=== PATIENT | male | born 1975 | race Caucasian/White ===

== ENCOUNTER 2020-06-24 11:59 | Inpatient (IN) ==
[2020-06-24] MEDS ORDERED: DEXAMETHASONE SOD INJ 10 MG/ML VIAL IV ONE (12:26)
--- NOTE | 2020-06-24 12:31 | Emergency Department Note ---
Impression & Plan Pneumonia due to 2019 novel coronavirus, SOB (shortness of breath), Hypoxia ED Provider Note NAME: SADIA BORGES AGE: 44 SEX: M : 1975 ARRIVES VIA: Walk-In INFORMANT: Patient ED PROVIDER(S): Dani Harding DO CHIEF COMPLAINT: shortness of breath HPI: Patient is a 44-year-old male who presents to the ER for shortness of breath. All his symptoms started last Sunday. He started with a cough, runny nose, shortness of breath. He was tested positive for Covid on Sunday. He was seen and evaluated and sent home. He has become more short of breath. He was using a pulse ox and it was in the mid 80s. He came back in after discussion with our care mangers. He notes he has been still having fevers as well. Myalgias and arthralgias have improved. He denies any belly pain but admits to nausea. No vomiting or diarrhea. Denies any dysuria, urgency or frequency. No other exacerbating or remitting factors. He denies all other medical problems. ROS: See above HPI for pertinent positives & negatives. A total of 10 systems reviewed and were otherwise negative. PAST MEDICAL HISTORY:See Below PAST SURGICAL HISTORY:See Below FAMILY HISTORY:See Below SOCIAL HISTORY:See Below HOME MEDICATIONS:See Below ALLERGIES:See Below VITALS:See Below PHYSICAL EXAMINATION: GENERAL: Sitting up in bed, alert, slightly ill-appearing, disheveled EYE EXAM: normal conjunctiva. PERRL and EOM's grossly intact. OROPHARYNX: normal and mucous membranes are moist NECK: supple, no nuchal rigidity, no adenopathy, non-tender LUNGS: Clear to auscultation. Normal chest wall mechanics HEART: no murmurs, S1 normal and S2 normal ABDOMEN: abdomen soft, non-tender, normo-active bowel sounds, no masses, no rebound or guarding. UPPER EXTREMITIES: upper extremities are grossly normal. LOWER EXTREMITIES: No pitting edema. Calves are equal bilateral NEURO EXAM: Normal sensorium, cranial nerves II-XII grossly intact, normal speech, no gross weakness of arms, no gross weakness of legs. MEDICAL DECISION MAKING: Patient is a 44-year-old male who presents the ER for shortness of breath. He was seen evaluated previously and diagnosed with Covid. IV was established blood work was obtained. Labs showed no significant leukocytosis or anemia. INR was unremarkable. D-dimer was elevated at 620. BMP was fairly unremarkable. Lactic acid was normal. Magnesium slightly elevated. LFTs bilirubin and troponin was negative. Procalcitonin was normal. Based on this I do believe his chest x-ray is consistent with Covid pneumonia. D-dimer was slightly elevated but with the chest x-ray I do believe that this explains the hypoxia. He was placed on high flow nasal cannula. He was updated bedside. He was given Decadron fluids and felt much better. He was admitted to the hospital for hypoxia secondary to Covid pneumonia. Triage Nursing notes reviewed. Limited review of prior medical records performed Vital Signs: reviewed and remarkable for febrile and tachy Differential diagnosis: Differential diagnoses includes but is not limited to pneumonia, bronchitis, COPD/Asthma exacerbation, pneumothorax, pulmonary embolism, congestive heart failure, acute coronary syndrome ER treatment provided: See below Diagnostics interpreted by me: ECG: Sinus tachycardia rate of 100 Normal axis T wave inversion in lead III No PVCs QTC 464 EKG #2 Sinus rhythm rate of 94 Normal axis T wave inversion in lead III Poor baseline QTC 455 Cardiac Monitoring: An order was placed for continuous cardiac monitoring. The monitor shows a rate of 94 with sinus rhythm. Laboratory studies: As stated above and show below. Imaging studies: Portable AP upright 1 view of the chest shows multifocal pneumonia Consultation(s): Discussed with the hospitalist for further evaluation Procedures: none Critical Care: I have personally spent 40 minutes of critical care time in the direct management of this patient. This includes bedside care, interpretation of diagnostic studies, and testing, discussion with consultants, patient, and family members, and other required patient management activities. This 40 minutes is in excess of all separately billable procedures. Past Med/Surg History Medical History (Updated 06/24/20 @ 17:00 by Dani Harding DO) COVID-19 No pertinent past medical history Surgical History (Updated 06/24/20 @ 15:38 by Natalio Friedman) H/O arthroscopic knee surgery left Hx of tonsillectomy Family History (Updated 06/24/20 @ 15:36 by Natalio Friedman) Father Coronary heart disease s/p [place] with stents; he is now age 73 Mother No problems noted. 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 [employer] How many Children do You have: 2 Feels Safe at Home: Yes Allergies Allergies Allergy/AdvReac Type Severity Reaction Status Date / Time No Known Allergies Allergy Unverified 06/22/20 19:19 Home Meds Home Medications Medication Instructions Recorded Confirmed acetaminophen [Tylenol Extra 1,000 mg PO Q6H PRN 06/22/20 06/24/20 Strength] multivitamin 1 tab PO DAILY 06/22/20 06/24/20 Previous Rx's Medication Instructions Recorded doxycycline hyclate 100 mg PO BID 10 Days #18 tab 06/22/20 ondansetron 4 mg PO Q4H PRN #8 tab 06/22/20 Results & Data (ED) Vital Signs Vital Signs - 24 hr 06/24/20 12:02 06/24/20 12:42 06/24/20 12:50 Temperature 38.1 C H Temperature Source Temporal Artery Scan Pulse Rate 103 H Pulse Rate [Finger] 105 H Pulse Rate from SpO2 Sensor Pulse Rhythm Regular Pulse Strength Normal Respiratory Rate 18 36 H Respiratory Effort / Characteristics Non-Labored Spontaneous Spontaneous Respiratory Depth Normal Respiratory Pattern Regular Blood Pressure 117/76 Blood Pressure Mean 89 Blood Pressure Position Sitting Pulse Oximetry 87 L 92 94 Oxygen Delivery Method Room Air Oxymask High Flow Nasal Cannula Oxygen Flow Rate 15 30 Fraction of Inspired Oxygen 70 Sepsis Recent Fever Within 48 Hours Yes Sepsis New/Unexplained Change in Mental Status No Sepsis Action Taken by Nursing No Action Required 06/24/20 13:00 06/24/20 13:20 06/24/20 13:30 Temperature Temperature Source Pulse Rate 94 H 96 H 102 H Pulse Rate [Finger] Pulse Rate from SpO2 Sensor 93 H 96 H 100 H Pulse Rhythm Pulse Strength Respiratory Rate 34 H 31 H 22 Respiratory Effort / Characteristics Respiratory Depth Respiratory Pattern Blood Pressure 110/72 Blood Pressure Mean 84 Blood Pressure Position Pulse Oximetry 92 92 Oxygen Delivery Method High Flow Nasal Cannula High Flow Nasal Cannula Oxygen Flow Rate 30 30 Fraction of Inspired Oxygen Sepsis Recent Fever Within 48 Hours Sepsis New/Unexplained Change in Mental Status Sepsis Action Taken by Nursing 06/24/20 13:31 06/24/20 13:40 06/24/20 13:50 Temperature Temperature Source Pulse Rate 98 H 90 94 H Pulse Rate [Finger] Pulse Rate from SpO2 Sensor 98 H 91 H 94 H Pulse Rhythm Pulse Strength Respiratory Rate 27 H 27 H 23 Respiratory Effort / Characteristics Respiratory Depth Respiratory Pattern Blood Pressure 145/71 H Blood Pressure Mean 95 Blood Pressure Position Pulse Oximetry 91 92 92 Oxygen Delivery Method High Flow Nasal Cannula High Flow Nasal Cannula Oxygen Flow Rate 30 30 Fraction of Inspired Oxygen Sepsis Recent Fever Within 48 Hours Sepsis New/Unexplained Change in Mental Status Sepsis Action Taken by Nursing 06/24/20 14:00 06/24/20 14:01 06/24/20 14:10 Temperature Temperature Source Pulse Rate 91 H 92 H 92 H Pulse Rate [Finger] Pulse Rate from SpO2 Sensor 91 H 93 H 92 H Pulse Rhythm Pulse Strength Respiratory Rate Respiratory Effort / Characteristics Respiratory Depth Respiratory Pattern Blood Pressure 125/99 Blood Pressure Mean 107 Blood Pressure Position Pulse Oximetry 92 92 92 Oxygen Delivery Method Oxygen Flow Rate Fraction of Inspired Oxygen Sepsis Recent Fever Within 48 Hours Sepsis New/Unexplained Change in Mental Status Sepsis Action Taken by Nursing 06/24/20 14:20 06/24/20 14:30 06/24/20 14:31 Temperature Temperature Source Pulse Rate 90 88 86 Pulse Rate [Finger] Pulse Rate from SpO2 Sensor 90 88 86 Pulse Rhythm Pulse Strength Respiratory Rate Respiratory Effort / Characteristics Respiratory Depth Respiratory Pattern Blood Pressure 124/84 Blood Pressure Mean 97 Blood Pressure Position Pulse Oximetry 93 94 94 Oxygen Delivery Method Oxygen Flow Rate Fraction of Inspired Oxygen Sepsis Recent Fever Within 48 Hours Sepsis New/Unexplained Change in Mental Status Sepsis Action Taken by Nursing 06/24/20 14:40 06/24/20 14:50 06/24/20 15:00 Temperature Temperature Source Pulse Rate 93 H 90 90 Pulse Rate [Finger] Pulse Rate from SpO2 Sensor 93 H 90 90 Pulse Rhythm Pulse Strength Respiratory Rate Respiratory Effort / Characteristics Respiratory Depth Respiratory Pattern Blood Pressure 147/90 H Blood Pressure Mean 109 Blood Pressure Position Pulse Oximetry 94 94 94 Oxygen Delivery Method Oxygen Flow Rate Fraction of Inspired Oxygen Sepsis Recent Fever Within 48 Hours Sepsis New/Unexplained Change in Mental Status Sepsis Action Taken by Nursing 06/24/20 15:01 06/24/20 15:10 06/24/20 15:20 Temperature Temperature Source Pulse Rate 91 H 90 89 Pulse Rate [Finger] Pulse Rate from SpO2 Sensor 91 H 91 H 90 Pulse Rhythm Pulse Strength Respiratory Rate 16 Respiratory Effort / Characteristics Respiratory Depth Respiratory Pattern Blood Pressure Blood Pressure Mean Blood Pressure Position Pulse Oximetry 94 93 93 Oxygen Delivery Method Oxygen Flow Rate Fraction of Inspired Oxygen Sepsis Recent Fever Within 48 Hours Sepsis New/Unexplained Change in Mental Status Sepsis Action Taken by Nursing Laboratory Data Result diagrams: 06/24/20 12:43 06/24/20 12:43 Lab Results 06/24/20 06/24/20 06/24/20 Range/Units 12:43 12:43 12:43 WBC 8.33 (4.8-10.8) K/uL RBC 5.14 (4.7-6.1) M/uL Hgb 15.3 (14.0-18.0) g/dL Hct 43.7 (42-52) % MCV 85.0 (80-100) fL MCH 29.8 (25-34) pg MCHC 35.0 (32-36) g/dL RDW Std Deviation 38.3 (36.4-46.3) fL RDW Coeff of Catalino 12.3 (11.5-14.5) % Plt Count 308 (130-400) K/uL MPV 8.9 (7.4-10.4) fL Immature Gran % (Auto) 0.5 % Neut % (Auto) 88.1 % Lymph % (Auto) 6.4 % [place] % (Auto) 4.8 % Eos % (Auto) 0.1 % Baso % (Auto) 0.1 % Neut # (Auto) 7.34 H (1.4-6.5) K/uL Lymph # (Auto) 0.53 L (1.2-3.4) K/uL [place] # (Auto) 0.40 (0.11-0.59) K/uL Eos # (Auto) 0.01 (0-0.5) K/uL Baso # (Auto) 0.01 (0-0.2) K/uL Immature Gran # (Auto) 0.04 H (0.00-0.02) K/uL PT 10.8 (9.0-12.0) Seconds INR 1.0 (0.9-1.1) APTT 30.3 (21.0-31.0) Seconds PTT Ratio 1.1 D-Dimer 620 H* (0-500) ug/L FEU Sodium 136 (136-145) mmol/L Potassium 3.5 (3.5-5.1) mmol/L Chloride 103 (98-107) mmol/L Carbon Dioxide 28 (21-32) mmol/L Anion Gap 5.0 (3-11) BUN 17 (7-18) mg/dl Creatinine 1.18 (0.6-1.4) mg/dl Est Cr Clr Drug Dosing 93.9 ml/min Est GFR ( Amer) 85.3 Est GFR (Non-Af Amer) 73.6 BUN/Creatinine Ratio 14.3 (10-20) Glucose 131 H (70-99) mg/dl Lactate (0.4-2.0) mmol/L Calcium 8.4 L (8.5-10.1) mg/dl Magnesium 2.6 H (1.8-2.4) mg/dl Total Bilirubin 0.6 (0.2-1) mg/dl AST 51 H (15-37) U/L ALT 43 (12-78) U/L Alkaline Phosphatase 83 (45-117) U/L Troponin I < 0.015 (0-0.045) ng/ml Total Protein 7.6 (6.4-8.2) gm/dl Albumin 3.2 L (3.4-5.0) gm/dl Globulin 4.4 H (2.5-4.0) gm/dl Albumin/Globulin Ratio 0.7 L (0.9-2) Procalcitonin (0-0.5) ng/ml 06/24/20 06/24/20 Range/Units 12:43 13:15 WBC (4.8-10.8) K/uL RBC (4.7-6.1) M/uL Hgb (14.0-18.0) g/dL Hct (42-52) % MCV (80-100) fL MCH (25-34) pg MCHC (32-36) g/dL RDW Std Deviation (36.4-46.3) fL RDW Coeff of Catalino (11.5-14.5) % Plt Count (130-400) K/uL MPV (7.4-10.4) fL Immature Gran % (Auto) % Neut % (Auto) % Lymph % (Auto) % [place] % (Auto) % Eos % (Auto) % Baso % (Auto) % Neut # (Auto) (1.4-6.5) K/uL Lymph # (Auto) (1.2-3.4) K/uL [place] # (Auto) (0.11-0.59) K/uL Eos # (Auto) (0-0.5) K/uL Baso # (Auto) (0-0.2) K/uL Immature Gran # (Auto) (0.00-0.02) K/uL PT (9.0-12.0) Seconds INR (0.9-1.1) APTT (21.0-31.0) Seconds PTT Ratio D-Dimer (0-500) ug/L FEU Sodium (136-145) mmol/L Potassium (3.5-5.1) mmol/L Chloride (98-107) mmol/L Carbon Dioxide (21-32) mmol/L Anion Gap (3-11) BUN (7-18) mg/dl Creatinine (0.6-1.4) mg/dl Est Cr Clr Drug Dosing ml/min Est GFR ( Amer) Est GFR (Non-Af Amer) BUN/Creatinine Ratio (10-20) Glucose (70-99) mg/dl Lactate 1.1 (0.4-2.0) mmol/L Calcium (8.5-10.1) mg/dl Magnesium (1.8-2.4) mg/dl Total Bilirubin (0.2-1) mg/dl AST (15-37) U/L ALT (12-78) U/L Alkaline Phosphatase (45-117) U/L Troponin I (0-0.045) ng/ml Total Protein (6.4-8.2) gm/dl Albumin (3.4-5.0) gm/dl Globulin (2.5-4.0) gm/dl Albumin/Globulin Ratio (0.9-2) Procalcitonin 0.06 (0-0.5) ng/ml Administered Medications Discontinued Medications Acetaminophen (Acetaminophen 500 Mg Tab) 1,000 mg PO NOW STA Stop: 06/24/20 13:33 Last Admin: 06/24/20 14:07 Dose: 1,000 mg Documented by: [id number] Dexamethasone (Dexamethasone Sod Inj 10 Mg/Ml Vial) 6 mg IV NOW ONE Stop: 06/24/20 12:27 Last Admin: 06/24/20 12:46 Dose: 6 mg Documented by: [id number] Sodium Chloride (Nss 1000ml) 1,000 mls @ 999 mls/hr IV .Q1H1M ONE Stop: 06/24/20 14:28 Last Infusion: 06/24/20 16:52 Dose: 0 mls/hr Documented by: [id number] Admin: 06/24/20 13:35 Dose: 999 mls/hr Documented by: [id number] Discharge Plan Visit Data Chief Complaint: Shortness of Breath/Dyspnea Stated Complaint: TESTED POSITIVE FOR COVID 06/16 SOB ED Provider: Dani Harding Discharge Problem: Pneumonia due to 2019 novel coronavirus, SOB (shortness of breath), Hypoxia Patient Disposition: Admitted As Inpatient Discharge Instructions Interventions: ED Discharge Assessment Last Done: 06/24/20 15:48
--- NOTE | 2020-06-24 12:54 | XRay Report ---
XR chest 1V portable CLINICAL HISTORY: SEPSIS COMPARISON STUDY: Chest radiograph June 22, 2020. FINDINGS: Lung volumes are mildly diminished. This is unchanged. There is no pneumothorax or pleural effusion. Moderate bilateral airspace opacities have progressed since prior examination. Note is made of moderate cardiomegaly. IMPRESSION: Progression of moderate bilateral airspace opacities consistent with multifocal pneumoni a. Radiographic follow-up to ensure resolution is recommended. ACT 112: Negative or not required by law. Electronically signed by: David Romero M.D. 06/24/2020 12:53 PM
[2020-06-24 13:04] LABS: Hematocrit (blood only) 43.7 % (42-52); Hemoglobin 15.3 g/dL (14.0-18.0); Mean Corpuscular Hemoglobin 29.8 pg (25-34); Mean Platelet Volume 8.9 fL (7.4-10.4); Platelet Count 308 K/uL (130-400); RDW Coefficient of Variation 12.3 % (11.5-14.5); RDW Standard Deviation 38.3 fL (36.4-46.3); Red Blood Count 5.14 M/uL (4.7-6.1); White Blood Count 8.33 K/uL (4.8-10.8)
[2020-06-24 13:15] LABS: Partial Thromboplastin Ratio 1.1; Partial Thromboplastin Time 30.3 Seconds (21.0-31.0); Prothrombin Time 10.8 Seconds (9.0-12.0)
[2020-06-24 13:24] LABS: Alanine Aminotransferase 43 U/L (12-78); Albumin Level 3.2 gm/dl (3.4-5.0); Aspartate Aminotransferase 51 U/L (15-37); BUN Creatinine Ratio 14.3 (10-20); Blood Urea Nitrogen 17 mg/dl (7-18); Calcium 8.4 mg/dl (8.5-10.1); Carbon Dioxide 28 mmol/L (21-32); Chloride 103 mmol/L (98-107); Creatinine Clr Calc Pharmacy 93.9 ml/min; Est GFR (African American) 85.3; Est GFR (Non-African American) 73.6; Glucose 131 mg/dl (70-99); Magnesium 2.6 mg/dl (1.8-2.4); Potassium 3.5 mmol/L (3.5-5.1); Sodium 136 mmol/L (136-145)
[2020-06-24] MEDS ORDERED: SODIUM CHLORIDE 0.9% 1000ML 1,000 ML IV ONE (13:28)
[2020-06-24 13:29] LABS: Albumin Globulin Ratio 0.7 (0.9-2); Alkaline Phosphatase 83 U/L (45-117); Bilirubin,Total 0.6 mg/dl (0.2-1); Globulin 4.4 gm/dl (2.5-4.0); Total Protein 7.6 gm/dl (6.4-8.2); Troponin I < 0.015 ng/ml (0-0.045)
[2020-06-24 13:31] LABS: Basophils # (auto) 0.01 K/uL (0-0.2); Basophils % (auto) 0.1 %; Eosinophils # (auto) 0.01 K/uL (0-0.5); Eosinophils % (auto) 0.1 %; Immature Granulocytes # (auto) 0.04 K/uL (0.00-0.02); Immature Granulocytes % (auto) 0.5 %; Lymphocytes # (auto) 0.53 K/uL (1.2-3.4); Lymphocytes % (auto) 6.4 %; Monocytes % (auto) 4.8 %; Neutrophils # (auto) 7.34 K/uL (1.4-6.5); Neutrophils % (auto) 88.1 %
[2020-06-24] MEDS ORDERED: ACETAMINOPHEN 500 MG TAB PO STA (13:32)
[2020-06-24 14:01] LABS: D Dimer 620 ug/L FEU (0-500)
--- NOTE | 2020-06-24 14:17 | History & Physical Report ---
Date of Service June 24, 2020 Assessment & Plan (1) Acute respiratory failure with hypoxia: Severe. 2nd to COVID-19 pneumonia. High-flow NC has been initiated in the ER. Will continue upon admission. Keep sats >90%. Pulmonary toilet, self-proning, bronchodilators prn, dexamethasone, etc. Nothing on history or by way of labs, etc highly suggestive of VTE. (2) Pneumonia due to 2019 novel coronavirus: Severe. He is about 8 days into his illness. Given the severity of his illness, the rapid worsening, etc will utilize Remdesivir x 5 days along with convalescent plasma. Dexamethasone x 10 days. FDA information sheet on plasma given to patient. Risks/benefits discussed, questions answered, consent obtained. T/S, plasma ordered. HFNC to keep sats >90%. Proning, pulm. toilet, etc. Repeat BMP, dimer, AST, CPK in am. He has taken about 2-3 days of doxycycline prior to admission and thus will finish that course. However, will defer on additional antibiotics given the normal procalcitonin, etc. DVT proph - lovenox 50mg BID. (3) Hyperglycemia: Given his obesity he is at risk of T2DM. Will check HbA1C in the am. Check BSGs. Change diet to DM diet if he is indeed diabetic. (4) Abnormal LFTs: Likely 2nd to COVID-19 infection. Repeat AST in am. Obtain CPK. Trend ast/alt given remdesivir usage. (5) Obesity: BMI 35.5. (6) DVT prophylaxis: Given high risk of VTE in setting of severe COVID illness will utilize lovenox 50mg BID. IV fluids - patient mildly volume depleted on exam - give 2 liters of fluid overnight. History of Present Illness Chief Complaint: worsening shortness of breath, fever, COVID+ Primary Care Provider: NO PCP 44yo male with no significant PMH - recently diagnosed with COVID-19 infection this past Sunday - presents with worsening respiratory symptoms and ongoing fever. 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 On Sunday night, 06/16/20, he developed fatigue and body- aches. By the next day he began with fevers, chills, sweats, sore throat, nasal congestion, and lack of appetite. All symptoms progressed and he ultimately developed loss of taste/smell as well. On 06/18/20, he went and obtained COVID testing which ultimately returned positive. He has continued with all of the above symptoms including a little diarrhea and then the development of cough/shortness of breath on 06/22. On that day he visited our ER at [facility]. He was not hypoxic at that time but cxr did confirm pneumonia. He was prescribed cough meds, albuterol, and doxycycline 100mg BID as his cough was productive. Fevers have been as high as 105 and have persisted since the time of symptom development last Sunday. Since the ER visit on 06/22 his dyspnea has worsened and now he has dyspnea with minimal activity. He was also checking his O2 sats at home and they were in the 80s in room air. Thus, he came back to [facility] ER today. During my admission assessment he was on 70% FiO2 via High-flow NC and was comfortable. At no time has he had chest pain, pleuritic pain or chest tightness. He admits he simply can't take a deep breath. Allergies Allergy/AdvReac Type Severity Reaction Status Date / Time No Known Allergies Allergy Unverified 06/22/20 19:19 Home Medications Medication Instructions Recorded Confirmed Type acetaminophen [Tylenol Extra 1,000 mg PO Q6H PRN 06/22/20 06/24/20 History Strength] doxycycline hyclate 100 mg PO BID 10 Days #18 tab 06/22/20 06/24/20 Rx multivitamin 1 tab PO DAILY 06/22/20 06/24/20 History ondansetron 4 mg PO Q4H PRN #8 tab 06/22/20 06/24/20 Rx Past Med/Surg History Medical History (Updated 06/24/20 @ 21:32 by Natalio Friedman) COVID-19 Surgical History (Updated 06/24/20 @ 15:38 by Natalio Friedman) H/O arthroscopic knee surgery left Hx of tonsillectomy Family History (Updated 06/24/20 @ 15:36 by Natalio Friedman) Father Coronary heart disease s/p [place] with stents; he is now age 73 Mother No problems noted. 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 [employer] How many Children do You have: 2 Feels Safe at Home: Yes Assistive Devices: Oxygen - Continuous Review of Systems Constitutional: + fever, + chills, + body aches, + fatigue, + malaise, + weakness and + anorexia Eyes: no worsening vision Ear, Nose, Mouth, Throat: + nasal congestion and + sore throat +loss of taste and smell Respiratory: + cough, + dyspnea, + dyspnea on exertion and + sputum production Cardiovascular: no chest pain and no edema Gastrointestinal: + nausea, + vomiting (dry heaves) and + diarrhea/loose stools (a little); no abdominal pain Genitourinary: no dysuria Musculoskeletal: + body aches; no joint pain Integumentary: no rash Neurologic: + tingling (body-wide a few days ago; lasted 20 min then resolved) and + dizziness Psychiatric: no depression Endocrine: denies diabetes Hematologic / Lymphatic: no easy bleeding Physical Exam Constitutional: well developed, well nourished, + ill appearing and + obese; no acute distress and no altered mental status Eyes: + anicteric sclerae and PERRL ENMT: Mouth: + dry oral mucous membranes Neck: trachea midline, no thyromegaly Respiratory: no respiratory distress Auscultation: + diminished lung sounds (bases), + crackles (bases) and + wheezes (scant, end-exp) Cardiovascular: Rate/Rhythm: regular rate and regular rhythm Heart Sounds: normal S1 and normal S2; no murmur Vessels: posterior tibial pulses present and dorsalis pedis pulses present; no JVD Extremities: no edema Gastrointestinal (Abdomen): normal bowel sounds, soft, nontender, no hepatosplenomegaly Musculoskeletal: no cyanosis or clubbing, extremities motor strength 5/5 Skin: no rashes, warm and dry Neurologic: moves all extremities; no focal motor deficits Psychiatric: A+Ox3, euthymic affect Lymphatic: no cervical lymphadenopathy Results & Data Results & Data ([facility]) Vital Signs (Past 12 Hours) Vital Signs Temp Pulse Pulse Resp BP Pulse Ox 06/24/20 13:50 94 H 23 92 06/24/20 13:40 90 27 H 92 06/24/20 13:31 98 H 27 H 145/71 H 91 06/24/20 13:30 102 H 22 06/24/20 13:20 96 H 31 H 92 06/24/20 13:00 94 H 34 H 110/72 92 06/24/20 12:50 105 H 36 H 94 06/24/20 12:42 92 06/24/20 12:02 38.1 C H 103 H 18 117/76 87 L Laboratory Results Laboratory Results - last 24 hr 06/24/20 06/24/20 06/24/20 12:43 12:43 12:43 WBC 8.33 RBC 5.14 Hgb 15.3 Hct 43.7 MCV 85.0 MCH 29.8 MCHC 35.0 RDW Std Deviation 38.3 RDW Coeff of Catalino 12.3 Plt Count 308 MPV 8.9 Immature Gran % (Auto) 0.5 Neut % (Auto) 88.1 Lymph % (Auto) 6.4 [place] % (Auto) 4.8 Eos % (Auto) 0.1 Baso % (Auto) 0.1 Neut # (Auto) 7.34 H Lymph # (Auto) 0.53 L [place] # (Auto) 0.40 Eos # (Auto) 0.01 Baso # (Auto) 0.01 Immature Gran # (Auto) 0.04 H PT 10.8 INR 1.0 APTT 30.3 PTT Ratio 1.1 D-Dimer 620 H* Sodium 136 Potassium 3.5 Chloride 103 Carbon Dioxide 28 Anion Gap 5.0 BUN 17 Creatinine 1.18 Est Cr Clr Drug Dosing 93.9 Est GFR ( Amer) 85.3 Est GFR (Non-Af Amer) 73.6 BUN/Creatinine Ratio 14.3 Glucose 131 H Lactate Calcium 8.4 L Magnesium 2.6 H Total Bilirubin 0.6 AST 51 H ALT 43 Alkaline Phosphatase 83 Troponin I < 0.015 Total Protein 7.6 Albumin 3.2 L Globulin 4.4 H Albumin/Globulin Ratio 0.7 L Procalcitonin 06/24/20 06/24/20 12:43 13:15 WBC RBC Hgb Hct MCV MCH MCHC RDW Std Deviation RDW Coeff of Catalino Plt Count MPV Immature Gran % (Auto) Neut % (Auto) Lymph % (Auto) [place] % (Auto) Eos % (Auto) Baso % (Auto) Neut # (Auto) Lymph # (Auto) [place] # (Auto) Eos # (Auto) Baso # (Auto) Immature Gran # (Auto) PT INR APTT PTT Ratio D-Dimer Sodium Potassium Chloride Carbon Dioxide Anion Gap BUN Creatinine Est Cr Clr Drug Dosing Est GFR ( Amer) Est GFR (Non-Af Amer) BUN/Creatinine Ratio Glucose Lactate 1.1 Calcium Magnesium Total Bilirubin AST ALT Alkaline Phosphatase Troponin I Total Protein Albumin Globulin Albumin/Globulin Ratio Procalcitonin 0.06 Diagnostic Findings cxr: IMPRESSION: Progression of moderate bilateral airspace opacities consistent with multifocal pneumonia. Radiographic follow-up to ensure resolution is recommended. EKG - my reading - sinus tach, RSR' pattern c/w IRBBB, large R wave lead 1 suggestive of LVH; NS ST changes III Code Status & VTE Plan Code Status full code VTE Prophylaxis Plan VTE Prophylaxis will be ordered: Yes PG Care Time/CCT Total # of Minutes Spent Total Time Spent with Patient: Total time spent is greater than 50% in coordination of care (as documented) at patient's floor/unit and/or counseling patient: Coding Level of Care Code 91720 Initial Inpt Care Lvl 3 Diagnoses Acute respiratory failure with hypoxia J96.01 Pneumonia due to 2019 novel coronavirus U07.1; J12.82 Hyperglycemia R73.9 Abnormal LFTs R94.5 Obesity E66.9 Body mass index: BMI 35.0-35.9 DVT prophylaxis Z29.9 (1) Obesity Body mass index: BMI 35.0-35.9
[2020-06-24] MEDS ORDERED: REMDESIVIR 200 MG in SODIUM CHLORIDE 0.9% 210 ML IV STA (15:27)
[2020-06-24] MEDS ORDERED: ACETAMINOPHEN 500 MG TAB PO ONE (16:41)
[2020-06-24] MEDS ORDERED: BENZONATATE 100 MG CAPSULE PO PRN (16:41)
[2020-06-24] MEDS ORDERED: ONDANSETRON INJ 2 MG/ML 2 ML VIAL IV PRN (16:41)
[2020-06-24] MEDS ORDERED: ENOXAPARIN 0.5 MG/KG SQ SCH (16:41)
[2020-06-24] MEDS ORDERED: ACETAMINOPHEN 500 MG TAB PO PRN (16:45)
--- NOTE | 2020-06-24 16:57 | Electrocardiogram Report ---
Test Reason : Blood Pressure : / mmHG Vent. Rate : 094 BPM Atrial Rate : 094 BPM P-R Int : 118 ms QRS Dur : 092 ms QT Int : 364 ms P-R-T Axes : 044 025 014 degrees QTc Int : 455 ms Normal sinus rhythm Normal ECG When compared with ECG of 22-JUN-2020 18:23, No significant change was found Confirmed by Yousif Friend ([id number]) on 06/24/2020 4:57:18 PM Referred By: REFERRED SELF Confirmed By:Mark Friend
--- NOTE | 2020-06-24 16:58 | Electrocardiogram Report ---
Test Reason : Blood Pressure : / mmHG Vent. Rate : 100 BPM Atrial Rate : 100 BPM P-R Int : 128 ms QRS Dur : 088 ms QT Int : 360 ms P-R-T Axes : 056 018 011 degrees QTc Int : 464 ms Normal sinus rhythm Normal ECG When compared with ECG of 24-JUN-2020 12:23, (unconfirmed) No significant change was found Confirmed by Yousif Friend ([id number]) on 06/24/2020 4:57:59 PM Referred By: REFERRED SELF Confirmed By:Mark Friend
[2020-06-24] MEDS: ENOXAPARIN INJ 60 MG/0.6 ML SYR SQ SCH (17:33)
[2020-06-24] MEDS: NSS + 20MEQ KCL 20 MEQ/1,000 ML BAG IV SCH (19:39)
[2020-06-24] MEDS: SODIUM CHLORIDE 0.9% 10ML FLUSH IV SCH (19:40)
[2020-06-24] MEDS: guaiFENesin 600 MG TABCR PO SCH (21:55)
[2020-06-24] MEDS: FAMOTIDINE 20 MG TAB PO SCH (21:55)
[2020-06-24] MEDS: DOXYCYCLINE HYCLATE 100 MG CAP PO SCH (21:55)
[2020-06-25] MEDS: NSS + 20MEQ KCL 20 MEQ/1,000 ML BAG IV SCH (06:08)
[2020-06-25] MEDS: ENOXAPARIN INJ 60 MG/0.6 ML SYR SQ SCH ×2 (06:09→17:12)
[2020-06-25 06:41] LABS: Estimated Average Glucose 117 mg/dl; Hemoglobin A1C 5.7 % (4.5-5.6)
[2020-06-25 07:23] LABS: BUN Creatinine Ratio 19.1 (10-20); Calcium 8.4 mg/dl (8.5-10.1); Creatinine Clr Calc Pharmacy 126.1 ml/min; Est GFR (African American) 118.8; Est GFR (Non-African American) 102.5; Potassium 4.2 mmol/L (3.5-5.1)
[2020-06-25 08:05] LABS: D Dimer 360 ug/L FEU (0-500)
[2020-06-25] MEDS: DOXYCYCLINE HYCLATE 100 MG CAP PO SCH ×2 (09:02→21:11)
[2020-06-25] MEDS: guaiFENesin 600 MG TABCR PO SCH ×2 (09:02→21:11)
[2020-06-25] MEDS: MULTIVITAMIN TAB PO SCH (09:02)
[2020-06-25] MEDS: dexAMETHasone 6 MG in SYRINGE 0 ML IV SCH (09:02)
[2020-06-25] MEDS: FAMOTIDINE 20 MG TAB PO SCH ×2 (09:02→21:11)
[2020-06-25] MEDS: REMDESIVIR 100 MG in SODIUM CHLORIDE 0.9% 230 ML IV SCH (11:18)
[2020-06-25] MEDS: SODIUM CHLORIDE 0.9% 10ML FLUSH IV SCH (12:20)
--- NOTE | 2020-06-25 16:30 | Hospitalist Progress Note ---
Date of Service June 25, 2020 Assessment & Plan (1) Acute respiratory failure with hypoxia: Severe. 2nd to COVID-19 pneumonia. Patient has progressed to Vapotherm 30 L 60% continues with some hypoxic events Pulmonary toilet, self-proning, bronchodilators prn, dexamethasone, this severe in plasma (2) Pneumonia due to 2019 novel coronavirus: Severe. On presentation he was about about 8 days into his illness. Earling is starting date to be somewhere around 06/16/2020 Given the severity of his illness, the rapid worsening, Dexamethasone, Remdesivir x 5 days along with convalescent plasma. He has taken about 2-3 days of doxycycline prior to admission and thus will finish that course. DVT proph - lovenox 50mg BID. ( 0.5 mg/kg q 12) (3) Hyperglycemia: Given his obesity he is at risk of T2DM. HbA1C 5.7 (4) Abnormal LFTs: Likely 2nd to COVID-19 infection. (5) Obesity: BMI 35.5. (6) DVT prophylaxis: Given high risk of VTE in setting of severe COVID illness will utilize lovenox 50mg BID. Admission and Anticipated Discharge Date Admission Date: June 24, 2020 Subjective Patient is in mild to moderate respiratory distress requiring high flow therapy still with significant hypoxia at times initially resistant to prone but now understanding with proning means we will continue to try to prone, will continue steroids, remdesivir, to try to diurese and provide supportive care for this patient Review of Systems Review of Systems: moderate distress and fatigue no headache, blurry or double vision no speech or swallowing issues no chest pain, pressure or palpitations Shortness of breath worse with exertion nonproductive coughing no abdominal pain, nausea or vomiting, diarrhea or constipation no dysuria, hematuria or frequency no focal joint pain or swelling no back pain, CVA tenderness or radicular pain no bruising, bleeding or rashes no focal signs of weakness or numbness or altered sensation no complaints of anxiety or depression.. Physical Exam Physical Exam: The patient appeared well nourished and normally developed. Vital signs as documented. Head exam is normocephalic atraumatic no scleral icterus Neck is without JVD, thyromegaly, or carotid bruits. Lungs are coarse rales bilaterally with poor air movement throughout no wheezes Cardiac exam, Rhythm is regular.. No murmurs, rubs or gallops. Abdominal exam reveals normal bowel sounds, soft non tender, no masses Extremities are nonedematous and both pedal pulses are present Neurologic exam is alert and oriented, no focal loss of strength or sensation Skin is without bruises or rashes Psychologically is without concerns for anxiety or depression. Results & Data Results & Data ([facility]) Vital Signs (Past 12 Hours) Vital Signs Temp Pulse Pulse Resp BP Pulse Ox 06/25/20 15:14 98.2 F 74 19 135/73 81 L 06/25/20 14:59 74 06/25/20 14:30 79 24 93 06/25/20 11:15 82 24 92 06/25/20 10:55 98.1 F 78 24 111/66 90 06/25/20 08:06 78 20 90 06/25/20 08:00 83 06/25/20 07:44 98.1 F 78 18 126/73 93 06/25/20 04:37 98.1 F 72 18 117/77 94 PG Care Time/CCT Total # of Minutes Spent Total Time Spent with Patient: Total time spent is greater than 50% in coordination of care (as documented) at patient's floor/unit and/or counseling patient: Coding Level of Care Code 73857 Subseq Hosp Care Lvl 3 Diagnoses Acute respiratory failure with hypoxia J96.01 Pneumonia due to 2019 novel coronavirus U07.1; J12.82 Hyperglycemia R73.9 Abnormal LFTs R94.5 Obesity E66.9 Body mass index: BMI 35.0-35.9 DVT prophylaxis Z29.9 (1) Obesity Body mass index: BMI 35.0-35.9
[2020-06-25] MEDS ORDERED: FUROSEMIDE 40 MG/4 ML VIAL IV STA (16:32)
[2020-06-25] MEDS ORDERED: FUROSEMIDE 20 MG in SYRINGE 0 ML IV ONE (16:45)
[2020-06-26] MEDS: ENOXAPARIN INJ 60 MG/0.6 ML SYR SQ SCH ×2 (06:30→17:20)
[2020-06-26 06:59] LABS: Alanine Aminotransferase 35 U/L (12-78); Aspartate Aminotransferase 28 U/L (15-37)
[2020-06-26] MEDS: FAMOTIDINE 20 MG TAB PO SCH ×2 (07:51→20:11)
[2020-06-26] MEDS: MULTIVITAMIN TAB PO SCH (07:51)
[2020-06-26] MEDS: guaiFENesin 600 MG TABCR PO SCH ×2 (07:51→20:11)
[2020-06-26] MEDS: DOXYCYCLINE HYCLATE 100 MG CAP PO SCH ×2 (07:51→20:11)
[2020-06-26] MEDS: dexAMETHasone 6 MG in SYRINGE 0 ML IV SCH (07:52)
[2020-06-26] MEDS: REMDESIVIR 100 MG in SODIUM CHLORIDE 0.9% 230 ML IV SCH (13:00)
[2020-06-26] MEDS: SODIUM CHLORIDE 0.9% 10ML FLUSH IV SCH (13:01)
--- NOTE | 2020-06-26 14:30 | Hospitalist Progress Note ---
Date of Service June 26, 2020 Assessment & Plan (1) Acute respiratory failure with hypoxia: Severe. 2nd to COVID-19 pneumonia. Patient continues with Vapotherm 30 L 60% continues with some hypoxic events Pulmonary toilet, self-proning, bronchodilators prn, dexamethasone, this severe in plasma (2) Pneumonia due to 2019 novel coronavirus: Severe. On presentation he was about about 8 days into his illness. Earling is starting date to be somewhere around 06/16/2020 Given the severity of his illness, the rapid worsening, Dexamethasone, Remdesivir x 5 days along with convalescent plasma. He has taken about 2-3 days of doxycycline prior to admission and thus will finish that course. DVT proph - lovenox 50mg BID. ( 0.5 mg/kg q 12) (3) Hyperglycemia: Given his obesity he is at risk of T2DM. HbA1C 5.7 (4) Abnormal LFTs: Likely 2nd to COVID-19 infection. (5) Obesity: BMI 35.5. (6) DVT prophylaxis: Given high risk of VTE in setting of severe COVID illness will utilize lovenox 50mg BID. Admission and Anticipated Discharge Date Admission Date: June 24, 2020 Subjective Patient continues with mild to moderate respiratory distress still requiring high flow therapy still with significant hypoxia at times proning where able continue steroids, remdesivir, to try to diurese and provide supportive care for this patient Review of Systems Review of Systems: moderate distress and fatigue no headache, blurry or double vision no speech or swallowing issues no chest pain, pressure or palpitations Shortness of breath worse with exertion nonproductive coughing no abdominal pain, nausea or vomiting, diarrhea or constipation no dysuria, hematuria or frequency no focal joint pain or swelling no back pain, CVA tenderness or radicular pain no bruising, bleeding or rashes no focal signs of weakness or numbness or altered sensation no complaints of anxiety or depression.. Ear, Nose, Mouth, Throat: Gastrointestinal: + diarrhea/loose stools (a little) Endocrine: Physical Exam Physical Exam: The patient appeared well nourished and normally developed. Vital signs as documented. Head exam is normocephalic atraumatic no scleral icterus Neck is without JVD, thyromegaly, or carotid bruits. Lungs continue with coarse rales bilaterally with poor air movement throughout no wheezes Cardiac exam, Rhythm is regular.. No murmurs, rubs or gallops. Abdominal exam reveals normal bowel sounds, soft non tender, no masses Extremities are nonedematous and both pedal pulses are present Neurologic exam is alert and oriented, no focal loss of strength or sensation Skin is without bruises or rashes Psychologically is without concerns for anxiety or depression. Results & Data Results & Data ([facility]) Vital Signs (Past 12 Hours) Vital Signs Temp Pulse Pulse Resp BP Pulse Ox 06/26/20 12:19 98.1 F 69 19 109/65 96 06/26/20 11:28 77 18 91 06/26/20 09:00 57 L 06/26/20 08:11 62 18 91 06/26/20 08:05 97.5 F L 64 19 115/71 94 06/26/20 03:22 97.5 F L 62 18 125/75 96 06/26/20 03:03 60 22 98 PG Care Time/CCT Total # of Minutes Spent Total Time Spent with Patient: Total time spent is greater than 50% in coordi nation of care (as documented) at patient's floor/unit and/or counseling patient: Coding Level of Care Code 91401 Subseq Hosp Care Lvl 2 Diagnoses Acute respiratory failure with hypoxia J96.01 Pneumonia due to 2019 novel coronavirus U07.1; J12.82 Hyperglycemia R73.9 Abnormal LFTs R94.5 Obesity E66.9 Body mass index: BMI 35.0-35.9 DVT prophylaxis Z29.9 (1) Obesity Body mass index: BMI 35.0-35.9
[2020-06-27] MEDS: ENOXAPARIN INJ 60 MG/0.6 ML SYR SQ SCH ×2 (06:38→17:03)
[2020-06-27 07:26] LABS: Alanine Aminotransferase 43 U/L (12-78); Aspartate Aminotransferase 34 U/L (15-37)
[2020-06-27] MEDS: MULTIVITAMIN TAB PO SCH (07:52)
[2020-06-27] MEDS: DOXYCYCLINE HYCLATE 100 MG CAP PO SCH ×2 (07:52→19:49)
[2020-06-27] MEDS: guaiFENesin 600 MG TABCR PO SCH ×2 (07:53→19:49)
[2020-06-27] MEDS: dexAMETHasone 6 MG in SYRINGE 0 ML IV SCH (07:53)
[2020-06-27] MEDS: FAMOTIDINE 20 MG TAB PO SCH ×2 (07:53→19:49)
[2020-06-27] MEDS: REMDESIVIR 100 MG in SODIUM CHLORIDE 0.9% 230 ML IV SCH (11:18)
[2020-06-27] MEDS: SODIUM CHLORIDE 0.9% 10ML FLUSH IV SCH (12:27)
--- NOTE | 2020-06-27 15:25 | Hospitalist Progress Note ---
Date of Service June 27, 2020 Assessment & Plan (1) Acute respiratory failure with hypoxia: Severe. 2nd to COVID-19 pneumonia. Patient transitioned off the Vapotherm to 8 L humidified high flow from the wall unit Pulmonary toilet, self-proning, bronchodilators prn, dexamethasone, this severe in plasma (2) Pneumonia due to 2019 novel coronavirus: Severe. On presentation he was about about 8 days into his illness. Ear[place] is starting date to be somewhere around 06/16/2020 Given the severity of his illness, the rapid worsening, Dexamethasone, Remdesivir x 5 days along with convalescent plasma. He has taken about 2-3 days of doxycycline prior to admission and thus will finish that course. DVT proph - lovenox 50mg BID. ( 0.5 mg/kg q 12) (3) Hyperglycemia: Given his obesity he is at risk of T2DM. HbA1C 5.7 glucose checks not reveal any glucose intolerance they were subsequently discontinued (4) Abnormal LFTs: Likely 2nd to COVID-19 infection. (5) Obesity: BMI 35.5. (6) DVT prophylaxis: Given high risk of VTE in setting of severe COVID illness will utilize lovenox 50mg BID. Admission and Anticipated Discharge Date Admission Date: June 24, 2020 Subjective Patient is some improvement with reduction of oxygen requirements from Vapotherm to 8 L high flow from the wall unit. He is continue to be comfortable but is dyspneic with exertion and has subjective complaints of feeling like he cannot take a full deep breath, continue steroids, remdesivir, supportive care Review of Systems Review of Systems: moderate distress and fatigue no headache, blurry or double vision no speech or swallowing issues no chest pain, pressure or palpitations Shortness of breath continues to be worse with exertion continues with nonproductive coughing no abdominal pain, nausea or vomiting, diarrhea or constipation no dysuria, hematuria or frequency no focal joint pain or swelling no back pain, CVA tenderness or radicular pain no bruising, bleeding or rashes no focal signs of weakness or numbness or altered sensation no complaints of anxiety or depression.. Physical Exam Physical Exam: The patient appeared well nourished and normally developed. Only in distress when he exerts himself Vital signs as documented. Head exam is normocephalic atraumatic no scleral icterus Neck is without JVD, thyromegaly, or carotid bruits. Lungs continue with coarse rales bilaterally right side greater than left side with poor air movement throughout Cardiac exam, Rhythm is regular.. No murmurs, rubs or gallops. Abdominal exam reveals normal bowel sounds, soft non tender, no masses Extremities are nonedematous and both pedal pulses are present Neurologic exam is alert and oriented, no focal loss of strength or sensation Skin is without bruises or rashes Psychologically is without concerns for anxiety or depression. Results & Data Results & Data ([facility]) Vital Signs (Past 12 Hours) Vital Signs Temp Pulse Pulse Resp BP Pulse Ox 06/27/20 12:03 65 18 95 06/27/20 11:20 98.1 F 72 19 116/70 91 06/27/20 11:10 73 18 93 06/27/20 08:34 74 06/27/20 07:30 98.2 F 67 20 128/76 93 06/27/20 07:24 67 18 93 06/27/20 07:14 66 06/27/20 03:35 98.1 F 60 18 121/76 96 PG Care Time/CCT Total # of Minutes Spent Total Time Spent with Patient: Total time spent is greater than 50% in coordination of care (as documented) at patient's floor/unit and/or counseling patient: Coding Level of Care Code 62573 Subseq Hosp Care Lvl 3 Diagnoses Acute respiratory failure with hypoxia J96.01 Pneumonia due to 2019 novel coronavirus U07.1; J12.82 Hyperglycemia R73.9 Abnormal LFTs R94.5 Obesity E66.9 Body mass index: BMI 35.0-35.9 DVT prophylaxis Z29.9 (1) Obesity Body mass index: BMI 35.0-35.9
[2020-06-28] MEDS: ENOXAPARIN INJ 60 MG/0.6 ML SYR SQ SCH ×2 (05:52→18:29)
[2020-06-28 06:47] LABS: Alanine Aminotransferase 140 U/L (12-78); Aspartate Aminotransferase 76 U/L (15-37)
[2020-06-28] MEDS: MULTIVITAMIN TAB PO SCH (08:49)
[2020-06-28] MEDS: dexAMETHasone 6 MG in SYRINGE 0 ML IV SCH (08:49)
[2020-06-28] MEDS: guaiFENesin 600 MG TABCR PO SCH ×2 (08:49→20:46)
[2020-06-28] MEDS: FAMOTIDINE 20 MG TAB PO SCH ×2 (08:49→20:46)
[2020-06-28] MEDS: DOXYCYCLINE HYCLATE 100 MG CAP PO SCH ×2 (08:50→20:46)
--- NOTE | 2020-06-28 10:25 | Hospitalist Progress Note ---
Date of Service June 28, 2020 Assessment & Plan (1) Acute respiratory failure with hypoxia: Severe. 2nd to COVID-19 pneumonia. Patient transitioned off the Vapotherm two days ago stable on 5L this morning, 94%, no distress at all hopeful to be down to room air in next 48 hours and discharge to home Pulmonary toilet, self-proning, bronchodilators prn, dexamethasone, this severe in plasma (2) Pneumonia due to 2019 novel coronavirus: Severe. On presentation he was about about 8 days into his illness. starting date was around 06/16/2020 Given the severity of his illness, the rapid worsening, Dexamethasone, Remdesivir x 5 days along with convalescent plasma. He has taken about 2-3 days of doxycycline prior to admission and thus will finish that course. DVT proph - lovenox 50mg BID. ( 0.5 mg/kg q 12) much improved, down to 5L today, eating well, no fever, likely through the worst of his illness plan for discharge in 2-3 days if he can be titrated down to room air (3) Hyperglycemia: Given his obesity he is at risk of T2DM. HbA1C 5.7 glucose checks not reveal any glucose intolerance they were subsequently discontinued (4) Abnormal LFTs: Likely 2nd to COVID-19 infection AST and ALT trending down (5) Obesity: BMI 35.5. (6) DVT prophylaxis: Given high risk of VTE in setting of severe COVID illness will utilize lovenox 50mg BID. Admission and Anticipated Discharge Date Admission Date: June 24, 2020 Subjective patient feeling a lot better, down to 6L, I dropped him to 5L and he remained 94% no respiratory distress, minimal cough, using his incentive spirometer and flutter valve a lot says he can breathe much deeper than a few days ago eating okay, forcing himself to eat more no chest pain, no fever/chills, no fatigue, no nausea/vomiting, no diarrhea Review of Systems Review of Systems: All systems reviewed & are unremarkable except as noted in Subjective Physical Exam Constitutional: WD/WN, vitals as above Neck: trachea midline, no thyromegaly Respiratory: normal respiratory effort, lungs clear to auscultation Cardiovascular: RRR, no murmur, no edema Gastrointestinal (Abdomen): normal bowel sounds, soft, nontender, no hepatosplenomegaly Musculoskeletal: no cyanosis or clubbing, extremities motor strength 5/5 Skin: no rashes, warm and dry Neurologic: patellar DTR's 2+ bilat, sensation intact and PERRL, EOMI, accommodation nl, no face palsy, no dysarthria Psychiatric: A+Ox3, euthymic affect Lymphatic: no cervical or axillary lymphadenopathy Results & Data Results & Data ([facility]) Vital Signs (Past 12 Hours) Vital Signs Temp Pulse Resp BP Pulse Ox 06/28/20 07:46 36.7 C 65 18 107/74 95 06/28/20 03:55 36.9 C 63 19 116/73 96 06/27/20 23:11 37.1 C 70 20 116/69 96 Laboratory Results Laboratory Results - last 24 hr 06/28/20 05:48 AST 76 H ALT 140 H Medications Administered Current Inpatient Medications Acetaminophen (Acetaminophen 500 Mg Tab) 500 mg PO Q6H PRN PRN Reason: Fever Or Pain Stop: 07/24/20 16:44 Benzonatate (Benzonatate 100 Mg Capsule) 100 mg PO Q8H PRN PRN Reason: Cough Stop: 07/24/20 16:40 Doxycycline Hyclate (Doxycycline Hyclate 100 Mg Cap) 100 mg PO BID [facility] Stop: 06/29/20 09:01 Last Admin: 06/28/20 08:50 Dose: 100 mg Documented by: Enoxaparin Sodium (Enoxaparin Inj 60 Mg/0.6 Ml Syr) 50 mg SQ Q12H JOSE Stop: 07/24/20 17:59 Last Admin: 06/28/20 05:52 Dose: 50 mg Documented by: Famotidine (Famotidine 20 Mg Tab) 20 mg PO BID [facility] Stop: 07/24/20 20:59 Last Admin: 06/28/20 08:49 Dose: 20 mg Documented by: Guaifenesin (Guaifenesin 600 Mg Tabcr) 1,200 mg PO Q12H [facility] Stop: 07/24/20 20:59 Last Admin: 06/28/20 08:49 Dose: 1,200 mg Documented by: Remdesivir 100 mg/ Sodium (Chloride) 250 mls @ 250 mls/hr IV Q24H [facility]; Protocol Stop: 06/28/20 12:59 Last Infusion: 06/27/20 12:26 Dose: Infused Documented by: Dexamethasone 6 mg/ Syringe 1.5 mls @ 1 mls/min IV DAILY [facility] Stop: 07/04/20 08:59 Last Admin: 06/28/20 08:49 Dose: 1 mls/min Documented by: Multivitamins (Multivitamin Tab) 1 tab PO DAILY JOSE Stop: 07/25/20 08:59 Last Admin: 06/28/20 08:49 Dose: 1 tab Documented by: Ondansetron HCl (Ondansetron Inj 2 Mg/Ml 2 Ml Vial) 4 mg IV Q6H PRN PRN Reason: Nausea Stop: 07/24/20 16:40 Sodium Chloride (Sodium Chloride 0.9% 10ml Flush) 30 ml IV DAILY@1300 [facility] Stop: 06/28/20 13:01 Last Admin: 06/27/20 12:27 Dose: 30 ml Documented by: PG Care Time/CCT Total # of Minutes Spent Total Time Spent with Patient: Total time spent is greater than 50% in coordination of care (as documented) at patient's floor/unit and/or counseling patient: Coding Level of Care Code 29127 Subseq Hosp Care Lvl 2 Diagnoses Acute respiratory failure with hypoxia J96.01 Pneumonia due to 2019 novel coronavirus U07.1; J12.82 Hyperglycemia R73.9 Abnormal LFTs R94.5 Obesity E66.9 Body mass index: BMI 35.0-35.9 DVT prophylaxis Z29.9 (1) Obesity Body mass index: BMI 35.0-35.9
[2020-06-28] MEDS: REMDESIVIR 100 MG in SODIUM CHLORIDE 0.9% 230 ML IV SCH (12:44)
[2020-06-28] MEDS: SODIUM CHLORIDE 0.9% 10ML FLUSH IV SCH (13:45)
[2020-06-29] MEDS: ENOXAPARIN INJ 60 MG/0.6 ML SYR SQ SCH ×2 (05:43→21:06)
[2020-06-29 06:30] LABS: Alanine Aminotransferase 146 U/L (12-78); Aspartate Aminotransferase 47 U/L (15-37)
[2020-06-29] MEDS: MULTIVITAMIN TAB PO SCH (08:45)
[2020-06-29] MEDS: guaiFENesin 600 MG TABCR PO SCH ×2 (08:45→21:06)
[2020-06-29] MEDS: DOXYCYCLINE HYCLATE 100 MG CAP PO SCH (08:45)
[2020-06-29] MEDS: dexAMETHasone 6 MG in SYRINGE 0 ML IV SCH (08:45)
[2020-06-29] MEDS: FAMOTIDINE 20 MG TAB PO SCH ×2 (08:45→21:06)
--- NOTE | 2020-06-29 10:14 | Hospitalist Progress Note ---
Date of Service June 29, 2020 Assessment & Plan (1) Acute respiratory failure with hypoxia: Severe due to COVID-19 pneumonia. Patient transitioned off the Vapotherm three days ago stable on 3L this morning, 93%, no distress at all hopeful to be down to room air by tomorrow if he is stable on room air tomorrow then discharge on 2/4 Pulmonary toilet, self-proning, bronchodilators prn, dexamethasone (2) Pneumonia due to 2019 novel coronavirus: Severe. On presentation he was about about 8 days into his illness. starting date was around 06/16/2020 Given the severity of his illness, the rapid worsening, Dexamethasone, Remdesivir x 5 days along with convalescent plasma. He has taken about 2-3 days of doxycycline prior to admission, finished the course DVT proph - lovenox 50mg BID. ( 0.5 mg/kg q 12) much improved, down to 3L NC today, eating well, no fever, likely through the worst of his illness plan for discharge in 1-2 days if he can be titrated down to room air (3) Hyperglycemia: Given his obesity he is at risk of T2DM. HbA1C 5.7 glucose checks not reveal any glucose intolerance they were subsequently discontinued (4) Abnormal LFTs: Likely 2nd to COVID-19 infection AST and ALT trending down (5) Obesity: BMI 35.5. (6) DVT prophylaxis: Given high risk of VTE in setting of severe COVID illness will utilize lovenox 50mg BID. Admission and Anticipated Discharge Date Admission Date: June 24, 2020 Subjective patient doing well, down to 3L NC, no issues overnight he says he is bored, just wants to get home discussed trying to wean down to room air by tomorrow, will see how he does he is eating well, making urine, moved bowels last night Review of Systems Review of Systems: All systems reviewed & are unremarkable except as noted in Subjective Physical Exam Constitutional: WD/WN, vitals as above Neck: trachea midline, no thyromegaly Respiratory: normal respiratory effort, lungs clear to auscultation Cardiovascular: RRR, no murmur, no edema Gastrointestinal (Abdomen): normal bowel sounds, soft, nontender, no hepatosplenomegaly Musculoskeletal: no cyanosis or clubbing, extremities motor strength 5/5 Skin: no rashes, warm and dry Neurologic: patellar DTR's 2+ bilat, sensation intact and PERRL, EOMI, accommodation nl, no face palsy, no dysarthria Psychiatric: A+Ox3, euthymic affect Lymphatic: no cervical or axillary lymphadenopathy Results & Data Results & Data ([facility]) Vital Signs (Past 12 Hours) Vital Signs Temp Pulse Resp BP Pulse Ox 06/29/20 07:39 36.5 C 69 16 115/71 92 06/29/20 03:42 36.7 C 69 20 123/76 94 06/28/20 23:31 36.6 C 72 18 123/74 93 Laboratory Results Laboratory Results - last 24 hr 06/29/20 05:42 AST 47 H ALT 146 H Medications Administered Current Inpatient Medications Acetaminophen (Acetaminophen 500 Mg Tab) 500 mg PO Q6H PRN PRN Reason: Fever Or Pain Stop: 07/24/20 16:44 Benzonatate (Benzonatate 100 Mg Capsule) 100 mg PO Q8H PRN PRN Reason: Cough Stop: 07/24/20 16:40 Enoxaparin Sodium (Enoxaparin Inj 60 Mg/0.6 Ml Syr) 50 mg SQ Q12H JOSE Stop: 07/24/20 17:59 Last Admin: 06/29/20 05:43 Dose: 50 mg Documented by: Famotidine (Famotidine 20 Mg Tab) 20 mg PO BID JOSE Stop: 07/24/20 20:59 Last Admin: 06/29/20 08:45 Dose: 20 mg Documented by: Guaifenesin (Guaifenesin 600 Mg Tabcr) 1,200 mg PO Q12H JOSE Stop: 07/24/20 20:59 Last Admin: 06/29/20 08:45 Dose: 1,200 mg Documented by: Dexamethasone 6 mg/ Syringe 1.5 mls @ 1 mls/min IV DAILY JOSE Stop: 07/04/20 08:59 Last Admin: 06/29/20 08:45 Dose: 1 mls/min Documented by: Multivitamins (Multivitamin Tab) 1 tab PO DAILY JOSE Stop: 07/25/20 08:59 Last Admin: 06/29/20 08:45 Dose: 1 tab Documented by: Ondansetron HCl (Ondansetron Inj 2 Mg/Ml 2 Ml Vial) 4 mg IV Q6H PRN PRN Reason: Nausea Stop: 07/24/20 16:40 PG Care Time/CCT Total # of Minutes Spent Total Time Spent with Patient: Total time spent is greater than 50% in coordination of care (as documented) at patient's floor/unit and/or counseling patient: Coding Level of Care Code 31115 Subseq Hosp Care Lvl 2 Diagnoses Acute respiratory failure with hypoxia J96.01 Pneumonia due to 2019 novel coronavirus U07.1; J12.82 Hyperglycemia R73.9 Abnormal LFTs R94.5 Obesity E66.9 Body mass index: BMI 35.0-35.9 DVT prophylaxis Z29.9 (1) Obesity Body mass index: BMI 35.0-35.9
[2020-06-30] MEDS: ENOXAPARIN INJ 60 MG/0.6 ML SYR SQ SCH (06:00)
[2020-06-30 08:01] LABS: BUN Creatinine Ratio 22.3 (10-20); Est GFR (African American) 110.8; Est GFR (Non-African American) 95.6; Potassium 3.4 mmol/L (3.5-5.1)
[2020-06-30 08:38] LABS: Hematocrit (blood only) 41.2 % (42-52); Mean Corpuscular Hemoglobin 29.2 pg (25-34); RDW Coefficient of Variation 12.1 % (11.5-14.5); RDW Standard Deviation 38.1 fL (36.4-46.3); Red Blood Count 4.79 M/uL (4.7-6.1); White Blood Count 6.58 K/uL (4.8-10.8)
[2020-06-30] MEDS: guaiFENesin 600 MG TABCR PO SCH (09:04)
[2020-06-30] MEDS: FAMOTIDINE 20 MG TAB PO SCH (09:04)
[2020-06-30] MEDS: MULTIVITAMIN TAB PO SCH (09:04)
[2020-06-30] MEDS: dexAMETHasone 6 MG in SYRINGE 0 ML IV SCH (09:05)
--- NOTE | 2020-06-30 11:03 | Discharge Summary ---
Date of Service June 30, 2020 Admission HPI Per Admitting Provider 44yo male with no significant PMH - recently diagnosed with COVID-19 infection this past Sunday - presents with worsening respiratory symptoms and ongoing fever. 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 On Sunday night, 06/16/20, he developed fatigue and body- aches. By the next day he began with fevers, chills, sweats, sore throat, nasal congestion, and lack of appetite. All symptoms progressed and he ultimately developed loss of taste/smell as well. On 06/18/20, he went and obtained COVID testing which ultimately returned positive. He has continued with all of the above symptoms including a little diarrhea and then the development of cough/shortness of breath on 06/22. On that day he visited our ER at [facility]. He was not hypoxic at that time but cxr did confirm pneumonia. He was prescribed cough meds, albuterol, and doxycycline 100mg BID as his cough was productive. Fevers have been as high as 105 and have persisted since the time of symptom development last Sunday. Since the ER visit on 06/22 his dyspnea has worsened and now he has dyspnea with minimal activity. He was also checking his O2 sats at home and they were in the 80s in room air. Thus, he came back to [facility] ER today. During my admission assessment he was on 70% FiO2 via [place] and was comfortable. At no time has he had chest pain, pleuritic pain or chest tightness. He admits he simply can't take a deep breath. Principal Diagnosis COVID 19 pneumonia Discharge Exam Constitutional WD/WN, vitals as above Neck trachea midline, no thyromegaly Respiratory normal respiratory effort, lungs clear to auscultation Cardiovascular RRR, no murmur, no edema Gastrointestinal (Abdomen) normal bowel sounds, soft, nontender, no hepatosplenomegaly Musculoskeletal no cyanosis or clubbing, extremities motor strength 5/5 Skin no rashes, warm and dry Neurologic patellar DTR's 2+ bilat, sensation intact and PERRL, EOMI, accommodation nl, no face palsy, no dysarthria Psychiatric A+Ox3, euthymic affect Lymphatic no cervical or axillary lymphadenopathy Discharge Data Allergies Allergy/AdvReac Type Severity Reaction Status Date / Time No Known Allergies Allergy Unverified 06/22/20 19:19 Consultations 06/24/20 13:49 ED Decision to Admit Stat Hospital Course (1) Acute respiratory failure with hypoxia: Severe due to COVID-19 pneumonia. Patient transitioned off the Vapotherm four days ago stable on room air this morning, no distress completed a 2 step ambulatory test with respiratory therapy, no oxygen needed at rest or exertion will discharge to home, stay well rested, well nourished stay off work until 07/12 as his job is very strenous and he is still recovering (2) Pneumonia due to 2019 novel coronavirus: Severe. On presentation he was about about 8 days into his illness. starting date was around 06/16/2020 Given the severity of his illness, the rapid worsening, Dexamethasone, Remdesivir x 5 days along with convalescent plasma. He had taken about 2-3 days of doxycycline prior to admission, finished the course while here DVT prophylaxis while admitted - lovenox 50mg BID. ( 0.5 mg/kg q 12) much improved, down to room air today, eating well, no fever, likely through the worst of his illness discharge to home, no oxygen needed complete 3 more days of dexamethasone, no further isolation needed (3) Hyperglycemia: Given his obesity he is at risk of T2DM. HbA1C 5.7 glucose checks not reveal any glucose intolerance they were subsequently discontinued (4) Abnormal LFTs: Likely 2nd to COVID-19 infection AST and ALT trending down (5) Obesity: BMI 35.5. (6) DVT prophylaxis: Given high risk of VTE in setting of severe COVID illness will utilize lovenox 50mg BID. Total Time Total Time Spent Total Time Spent (In Minutes): 32 minutes Total Time Includes: Examination of the Patient, Discharge Planning and Medication Reconciliation Discharge Plan Discharge Items Patient Disposition: Home - Self-Care Reason For Visit: ACUTE HYPOXIC RESP FAILURE 2ND TO COVID 19 Discharge Diagnosis: COVID 19 pneumonia Acute hypoxic respiratory failure Condition on Discharge: Good Goals: stay well rested, well nourished, well hydrated Activity: Resume your previous activity Driving/Machine Use: No limitations Weightbearing: Full weightbearing Non-emergency contact: Primary Care Provider Call non-emergency contact if: you have any medication questions, your symptoms worsen and you have a fever Follow-up/Referrals: PCP,NO [Primary Care Provider] - Diet: Regular Addtl Attending Provider Instructions: COVID 19 pneumonia, acute hypoxic respiratory failure treated with dexamethasone and Remdesivir you still have three days of dexamethasone to complete at home, start taking tomorrow morning stay well hydrated, well nourished, get rest you are more than 10 days out from beginning of symptoms, no longer require isolation/quarantine wear a mask in public places Pending Studies at Discharge: No Stand-Alone Forms: My [facility] [email or web address], Work/School Release (Inpt), Smoking Cessation Medications and DC Order Prescriptions: New dexamethasone 4 mg tablet 6 mg PO DAILY 3 Days Qty: 5 RF: 0 Continued acetaminophen [Tylenol Extra Strength] 500 mg Tablet 1,000 mg PO Q6H PRN (Reason: Fever Or Pain) RF: 0 multivitamin Tablet 1 tab PO DAILY RF: 0 ondansetron 4 mg tablet,disintegrating 4 mg PO Q4H PRN (Reason: nausea and vomiting) Qty: 8 RF: 0 Discontinued doxycycline hyclate 100 mg tablet 100 mg PO BID 10 Days Qty: 18 RF: 0 Discharge Orders: Discharge Order (Routine); Ordered 06/30/20 Ordered By: Vinod Resendez Admission Data Admit Date/Time: 06/24/20 15:27 Attending Provider: Vinod Resendez Admit Provider: Natalio Friedman Primary Care Provider: PCP,NO Other Providers: Natalio Friedman Coding Level of Care Code D/C Day Management >30 mins Diagnoses Acute respiratory failure with hypoxia J96.01 Pneumonia due to 2019 novel coronavirus U07.1; J12.82 Hyperglycemia R73.9 Abnormal LFTs R94.5 Obesity E66.9 Body mass index: BMI 35.0-35.9 DVT prophylaxis Z29.9
== END 2020-06-30 12:12 | disposition home or self-care (01) | DRG 177 ==
LOC: ED 11:59 → 2S 15:27 → SUATTDRO 15:27 → 2S 15:48 → 3W 06-29 16:51